=== PATIENT | female | born 1930 | race Two or more races ===

== ENCOUNTER 2017-08-03 09:49 | Emergency (ER) | payer OTHER, BC ==
[~2017-08-03] VITALS: Ht 147.3 cm; Wt 64.9 kg
[2017-08-03 10:03] VITALS: Ht 147.3 cm; Wt 64.9 kg
[2017-08-03] MEDS ORDERED: SIMVASTATIN40 M1 PO (10:45)
[2017-08-03] MEDS ORDERED: ASPIR 8181 MG PO (10:45)
[2017-08-03] MEDS ORDERED: INVOKAMET1 TAB PO (10:46)
[2017-08-03 11:01] LABS: BASOPHIL % 0.2 % (0-2); PLATELET COUNT 197 x10^3mcL (130-400); RED CELL DISTRIBUTION WIDTH 12.6 % (11.5-14.5)
[2017-08-03 11:07] LABS: CARBON DIOXIDE 23.6 mmol/L (21-32); CHLORIDE SERUM 107 mmol/L (98-107); CREATININE SERUM 0.7 mg/dL (0.6-1.0); GLUCOSE SERUM 133 mg/dL (74-106); SODIUM SERUM 139 mmol/L (136-145)
[2017-08-03 11:08] LABS: CALCIUM 7.9 mg/dL (8.5-10.1)
[2017-08-03 11:09] LABS: ALBUMIN 3.5 g/dL (3.4-5.0); ALKALINE PHOSPHATASE 70 U/L (46-116); ALT/SGPT 23 U/L (14-59); AST/SGOT 21 U/L (15-37); BILIRUBIN TOTAL 0.5 mg/dL (0.20-1.00); TOTAL PROTEIN, SERUM 7.3 g/dL (6.4-8.2)
[2017-08-03 11:10] LABS: LIPASE 226 IU/L (73-393)
[2017-08-03 13:20] VITALS: BP 131/71
== END 2017-08-03 13:20 | disposition home or self-care (01) ==
LOC: ED 09:49
PROVIDERS: Emergency Medicine
DX: R19.7 Diarrhea, unspecified (principal); E86.0 Dehydration; M79.1 Myalgia; I10 Essential (primary) hypertension; E11.9 Type 2 diabetes mellitus without complications
CPT/HCPCS: 83880; 87046; 87046-59